=== PATIENT | female | born 2000 | race Two or more races ===

== ENCOUNTER 2024-02-17 10:06 | Observation (INO) | payer OTHER ==
[~2024-02-17] VITALS: Ht 167.6 cm; Wt 74.0 kg
[2024-02-17 10:33] VITALS: BP 111/69; PULSE 108; RESP 18; O2SAT 95
--- NOTE | 2024-02-17 10:56 | ED.PDOC ---
History of Present Illness HPI Comments 23 y/o F presents with mother for c/o abnormal vaginal bleeding and lower abdominal cramping, today. Patient endorses on being 21x week with her first ([id number]) and having unprovoked and sudden onset of symptoms, today, and being recommended to come to the ED after consulting with her OB/G YN's office over the phone. Patient denies having any nausea, vomiting, urinary symptoms, weakness, or other associated symptoms or modifiers at this time. Chief Complaint: Abdominal Pain Time Seen by MD: 10:45 Reviewed Notes: Nurses Notes, Medications, Allergies Home Meds No Active Prescriptions or Reported Meds Information Source: Patient Mode of Arrival: Ambulatory Severity: Moderate Timing: Hours Duration: Since onset Prehospital treatment: None Past Medical History PAST MEDICAL HISTORY: Denies Surgical History: Denies all surgeries [employer]ER History: Denies all [employer] INST[employer]ER Hx Family History Family History: Unknown Social History Smoker: Non-Smoker Alcohol: Denies ETOH Use Drugs: Denies Drug Use Lives In: Home Gastrointestinal: reports: abdominal pain Genitourinary: reports: abnormal vagina bleeding All Other Systems: Reviewed and Negative (negative unless otherwise stated above or in HPI) Physical Exam General Appearance: Moderate Distress HEENT: Normal ENT Inspection, Pharynx Normal, TMs Normal Neck: Full Range of Motion, Non-Tender, Normal, Normal Inspection Respiratory: Chest Non-Tender, Lungs Clear, No Accessory Muscle Use, No Respiratory Distress, Normal Breath Sounds Cardiovascular: No Edema, No JVD, No Murmur, No Gallop, Normal Peripheral Pulses, Regular Rate/Rhythm Breast Exam: Deferred Gastrointestinal: No Organomegaly, Non Tender, No Pulsatile Mass, Normal Bowel Sounds, Soft Genitalia: Deferred Pelvic: Deferred Rectal: Deferred Extremities: No calf tenderness, Normal capillary refill, Normal inspection, Normal range of motion, Non-tender, No pedal edema Musculoskeletal : Apperance: Normal Neurologic: Alert, engineered wood designer II-XII nml as Tested, No Motor Deficits, Normal Affect, Normal Mood, No Sensory Deficits Cerebellar Function: Normal Reflexes: Normal Skin: Dry, Normal Color, Warm Peripheral Pulses: 3+ Radial (R), 3+ Radial (L) Lymphatic: No Adenopathy Was a procedure done? Was a procedure done?: No Differential Dx Considerations may include: at-risk , threatened , menorrhagia, dysmenorrhea X-Ray, Labs, Meds, VS Vital Signs Date Time Temp Pulse Resp B/P (MAP) Pulse Ox O2 Delivery O2 Flow Rate FiO2 02/17/24 10:33 99.2 108 18 111/69 (83) 95 Patient alert. Vaginal bleeding. She is . Vitals stable. She is taking her vitamins. Was sent to labor and delivery. Stable upon transfer. Explained to the patient. Time of 1ST Reevaluation: 10:50 Reevaluation 1ST: Unchanged Patient Education/Counseling: Diagnosis, Treatment Family Education/Counseling: No Family Present Departure 1 Departure Time of Disposition: 17:44 Impression: Primary Impression: Normal Qualified Codes: Z34.90 - Encounter for supervision of normal , unspecified, unspecified trimester Disposition: 02 SHORT TERM HOSPITAL Admit to: Med Surg Condition: Guarded e-Prescriptions No Active Prescriptions or Reported Meds Critical Care Note Critical Care Time?: No Stability Stability form required: No Heart Score Heart Score: Heart Score Response (Comments) Value History N/A 0 EKG N/A 0 Age N/A 0 Risk Factors N/A 0 Troponin N/A 0 Total 0 I personally scribed for PETE PICHARDO MD ([email or web address]) on 02/17/24 at 10:56. Electronically submitted by Gilberto Geller ([email or web address]). PETE PICHARDO MD Feb 17, 2024 10:56
--- NOTE | 2024-02-17 12:34 | DVH ---
LIMITED OB ULTRASOUND > 14 WKS: HISTORY: vaginal bleeding TECHNIQUE: Multiple real-time grayscale images of the gravid uterus with duplex Doppler color flow an d M-mode spectral analysis. TRANSDUCER: Transabdominal COMPARISON: None FINDINGS/IMPRESSION: heart rate 139 beats per minute SANDRA is subjectively within normal limits Cervix closed measuring 3.8 cm. Cephalic Presentation Posterior Placenta without previa or abruption. Anterior wall contraction is seen.
--- NOTE | 2024-02-18 07:28 | DVHDS2 ---
Physician Discharge Progress N Final Diagnosis: spotting Operations or Procedures: Operations or Procedures nst,sono Condition on Discharge: Good Disposition: Home Discharge Instructions: Diet: Regular Activity: No Restrictions, As Tolerated Medications: na Follow Up Care: Specialist: 3d Discharge Statement: "Patient was advised to return to the ER or call 911 if any headaches, dizziness, shortness of breath, chest pain, abdominal pain, bleeding, fevers, or worsening of medical condition. Patient was counseled about treatment plan, medications, possible side effects, patientverbalized understanding. All questions were answered to the best of my ability. This discharge took greater then 30 minutes in planning, reviewing documentation, counseling the patient, and discussing with other team members." SOPHIA KO DO Feb 18, 2024 07:28
== END 2024-02-17 12:40 | disposition home or self-care (01) ==
LOC: ER 10:06 → UNDOADMOB 10:42 → LDRP 10:42 → UNDODISOB 12:40
PROVIDERS: ADMIT Obstetrics & Gynecology; ATTEND Obstetrics & Gynecology
DX: O46.92 Antepartum hemorrhage, unspecified, second trimester (principal); O62.9 Abnormality of forces of labor, unspecified; Z98.890 Other specified postprocedural states; Z79.899 Other long term (current) drug therapy; Z3A.21 21 weeks gestation of pregnancy
CPT/HCPCS: 59025; 76815; 81002; 99284; G0378